=== PATIENT | female | born 1940 | race Caucasian/White ===

== ENCOUNTER 2017-09-02 10:45 | Emergency (ER) | payer MEDICARE ==
[2017-09-02 13:29] VITALS: BP 145/73
--- NOTE | 2017-09-02 13:38 | UC ---
Skin Complaint HPI - HPI Summary HPI Summary: 77 y/o female presents to the urgent care c/o of 2 tick bites in the left side of her neck since yesterday. She noticed them this morning and removed them. she is not sure if some parts of the tick still in her skin. Pt states mild redness around tick bite. Pt with Hx of Lyme disease Dx last year took full course of ABX. Pt denies fever, joint pains, SOB, FOSTER, abdominal pain, N/V/D - History of Current Complaint Chief Complaint: UCSkin Time Seen by Provider: 09/02/17 13:26 Stated Complaint: SKIN COMPLAINT NECK TICK Hx Obtained From: Patient Hx Last Menstrual Period: menopausal ?: No Onset/Duration: Sudden Onset, Lasting Days - 1 day, Still Present Skin Exposure Onset/Duration: Days Ago - 1 Timing: Constant Onset Severity: Mild Current Severity: Mild Pain Intensity: 0 Pain Scale Used: 0-10 Numeric Location: Discrete - left side of neck with tick bite Character: Redness Aggravating Factor(s): Touch Alleviating Factor(s): Nothing Associated Signs & Symptoms: Positive: Negative. Negative: Nausea, Vomiting, Numbness, Fever, Chills, Throat Tightening, Tenderness Related History: Possible Reaction to: Insect - Allergy/Home Medications Allergies/Adverse Reactions: Allergies Allergy/AdvReac Type Severity Reaction Status Date / Time No Known Allergies Allergy Verified 09/02/17 13:20 Home Medications: Home Medications Aspirin [Aspirin 81 MG TAB] 81 mg PO DAILY 09/02/17 [History Confirmed 09/02/17] Docusate CAP* [Colace Cap*] 100 mg PO BID 09/02/17 [History Confirmed 09/02/17] Emmintyvjku-Aecpyhckios-Oqc C- [Glucosamine Chondroitin] 1 tab PO DAILY [History Confirmed 09/02/17] Losartan TAB* [Cozaar TAB*] 25 mg PO DAILY 09/02/17 [History Confirmed 09/02/17] Multiple Vitamin [Multivitamins] 1 cap PO DAILY 09/02/17 [History Confirmed ] Pravastatin (NF) [Pravachol (NF)] 10 mg PO 1700 09/02/17 [History Confirmed ] Selenium (NF) 200 mcg PO DAILY 09/02/17 [History Confirmed 09/02/17] Review of Systems Constitutional: Negative Skin: Rash - 2 tick bites left side of neck Eyes: Negative ENT: Negative Respiratory: Negative Cardiovascular: Negative Gastrointestinal: Negative Genitourinary: Negative Motor: Negative Neurovascular: Negative Musculoskeletal: Negative Neurological: Negative Psychological: Negative Is Patient Immunocompromised?: No All Other Systems Reviewed And Are Negative: Yes PMH/Surg Hx/FS Hx/Imm Hx Previously Healthy: Yes Endocrine History: Diabetes, Dyslipidemia Cardiovascular History: Hypertension - Surgical History Surgical History: Yes Surgery Procedure, Year, and Place: D&C. abd surgery- bowel leakage. appy - Family History Known Family History: Positive: Cardiac Disease, Diabetes - Social History Occupation: Retired Lives: With Family Alcohol Use: Rare Substance Use Type: None Smoking Status (MU): Never Smoked Tobacco Physical Exam Triage Information Reviewed: Yes Vital Signs: Initial Vital Signs Temp 98.4 F 09/02/17 13:23 Pulse 71 09/02/17 13:23 Resp 18 09/02/17 13:23 BP 145/73 09/02/17 13:23 - Additional Comments Vital Signs Reviewed: Yes General: well developed, well nourished female sitting in the examining table w/ o any apparent distress. Eyes: Positive: Conjunctiva Clear - PERRLA, EOMI ENT: Positive: Normal ENT inspection, Hearing grossly normal, Pharynx normal, TMs normal Neck: Positive: Supple, Nontender, No Lymphadenopathy Respiratory: Positive: Chest nontender, Lungs clear, Normal breath sounds Cardiovascular: Positive: RRR, No Murmur, Pulses Normal Abdomen Description: Positive: Nontender, No Organomegaly, Soft. Negative: CVA Tenderness (R), CVA Tenderness (L) Bowel Sounds: Positive: Present Musculoskeletal: Positive: Strength Intact, ROM Intact, No Edema Neurological Exam: Normal Psychological Exam: Normal Skin: Positive: rashes - Left side of neck with 2 discrete tick bites with surrounding erythema, non tender to palpation. tick no longer present, no swelling or drainage observed. Course/Dx - Course Course Of Treatment: 77 y/o female presents to the urgent care c/o of 2 tick bites in the left side of her neck since yesterday. She noticed them this morning and removed them. she is not sure if some parts of the tick still in her skin. Pt states mild redness around tick bite. Pt with Hx of Lyme disease Dx last year took full course of ABX. Pt denies fever, joint pains, SOB, FOSTER, abdominal pain, N/V/D. Hx obtained. Pt with left side of neck with 2 tick bites on examiantion, ticks no longer present. Area cleaned and bacitracin topical cream applied over. After tick removal and the skin cleansing. Antibiotic prophylaxis with Doxycycline given to the patient to prevent lyme Disease.. Pt tolerated well medication. Pt W/ Hx of Lyme disease. Pt advised to observe the area for the development or Erythema Migrans for up to 30 days following exposure. Advised if he develops fever or erythema Migrans to f/u with Dr Brown who specializes on Lyme disease or PCP for further treatment . Pt took HTN this morning, Pt with elevated BP andvised to decrease salt in diet and monitor BP and f/u with PCP for further management. Pt understood and agreed with plan of care. - Differential Diagnoses - Skin Complaint Differential Diagnoses: Cellulitis, Local Allergic Reaction, Tick Born Illness, Urticaria, Other - bug bite, bee sting - Diagnoses Provider Diagnoses: 1- Tick bite left side of neck. 2- Uncontrolled HTN Discharge - Discharge Plan Condition: Stable Disposition: HOME Patient Education Materials: Tick Bite (ED), Low Sodium Diet (ED) Referrals: Malissa Reynolds MD [Primary Care Provider] - 2 Weeks Kevin MUNOZ,Julian Russell [Medical Doctor] - If Needed Additional Instructions: 1- Please observe the area for the development or Erythema Migrans for upto 30 days following exposure. Components of the tick saliva can cause transient erythema that should not be confused with Erythema Migrans. If you develop the bull's eye rash, fever, joint pains please return to the urgent care or f/u with your PCP for further management. 2-Antibiotic prophylaxis with Doxycycline was given to you today to prevent lyme Disease. Lyme serology can be drawn in 2 weeks with your PCP or Dr Brown since you have HX of Lyme disease since there is probability of negative results at early exposure. 3- Your BP is elevated today please decrease salt in your diet, monitor BP and if it continues to be elevated f/u with your PCP for further management
[2017-09-02] MEDS ORDERED: DOXYcycline CAP(*) 100 MG PO ONE (13:53)
== END 2017-09-02 14:29 | disposition home or self-care (01) ==
LOC: UCCORT 10:45
DX: S10.96XA Insect bite of unspecified part of neck, initial encounter (principal); W57.XXXA Bitten or stung by nonvenomous insect and other nonvenomous arthropods, initial encounter; Y93.9 Activity, unspecified; Y92.9 Unspecified place or not applicable; I10 Essential (primary) hypertension; E11.9 Type 2 diabetes mellitus without complications; Z79.84 Long term (current) use of oral hypoglycemic drugs; E78.5 Hyperlipidemia, unspecified; Z79.82 Long term (current) use of aspirin
CPT/HCPCS: 99202; A9270-GY; G0463